=== PATIENT | female | born 1940 | race Caucasian/White ===

== ENCOUNTER 2017-11-04 17:09 | Emergency (ER) | payer MEDICARE ==
[~2017-11-04] VITALS: Ht 152.4 cm; Wt 53.6 kg
[2017-11-04 17:12] VITALS: TEMP 98.1
[2017-11-04] MEDS ORDERED: MEDROL 4MG DOSPA4 MG PO (18:22)
[2017-11-04] MEDS ORDERED: ULTRAM 50MG TAB50 MG PO (18:22)
[2017-11-04 18:40] VITALS: BP 136/78; PULSE 78
== END 2017-11-04 18:40 | disposition home or self-care (01) ==
LOC: COL.ER 17:09
DX: M54.16 Radiculopathy, lumbar region (principal)

== ENCOUNTER 2017-11-05 21:23 | Emergency (ER) | payer MEDICARE ==
[~2017-11-05] VITALS: Ht 152.4 cm; Wt 53.6 kg
[~2017-11-05 21:23] MED LIST: MEDROL 4MG DOSPA4 MG PO; ULTRAM 50MG TAB50 MG PO
[2017-11-05 21:28] VITALS: TEMP 97.6
[2017-11-05 22:02] LABS: GRAN % 88.6 % (42.2-75.2); HEMATOCRIT 40.5 % (37.0-47.0); HEMOGLOBIN 13.7 g/dl (12.5-16.0); LYMPH # 0.4 (1.2-3.4); LYMPH % 7.7 % (20.0-51.0); MEAN CELL VOLUME 89 fl (80.0-100.0); MEAN CORPUSCULAR HEMOGLOBIN 30 pg (27.0-31.0); MEAN CORPUSCULAR HGB CONC 34 g/dl (33.0-37.0); MEAN PLATELET VOLUME 10.4 fl (7.4-10.4); MONO # 0.2 (0.1-0.6); MONO % 3.5 % (1.7-9.3); PLATELET COUNT 155 K/mm3 (130-400); RED BLOOD COUNT 4.57 M/mm3 (4.10-5.30)
[2017-11-05 22:08] LABS: PROTHROMBIN TIME 11.5 SECONDS (9.7-12.8)
[2017-11-05 22:13] LABS: ALANINE AMINOTRANSFERASE 281 U/L (9-52); ALBUMIN 4.2 gm/dL (3.5-5.0); ALKALINE PHOSPHATASE 155 U/L (50-136); ANION GAP 12 mmol/L (7-16); AST,SGOT 533 U/L (15-37); BILIRUBIN,TOTAL 1.1 mg/dL (0.0-1.0); BLOOD UREA NITROGEN 14 mg/dL (7-17); CALCIUM 9.3 mg/dL (8.4-10.2); CARBON DIOXIDE 24 mmol/L (22-30); CHLORIDE 100 mmol/L (98-107); CREATININE, serum 0.76 mg/dL (0.52-1.25); GLUCOSE 203 mg/dL (74-106); POTASSIUM 4.4 mmol/L (3.4-5.0); SODIUM 136 mmol/L (137-145); TOTAL PROTEIN 8.1 gm/dL (6.4-8.2)
[2017-11-05 22:26] LABS: TROPONIN-I < 0.012 ng/mL (0.000-0.034)
[2017-11-05 22:39] LABS: COLLECTION METHOD CLEAN CATCH
[2017-11-05 22:46] LABS: MUCOUS Present /lpf; PH 5 (5-8); SQUAMOUS EPITHELIAL None Seen /hpf; URINE APPEARANCE Clear; URINE BACTERIA Occasional /hpf; URINE BILIRUBIN Negative (NEGATIVE); URINE BLOOD Negative (NEGATIVE); URINE COLOR Yellow; URINE GLUCOSE 2+ (NEGATIVE); URINE KETONE Negative (NEGATIVE); URINE LEUKOCYTE ESTERASE 1+ (NEGATIVE); URINE NITRATE Positive (NEGATIVE); URINE PROTEIN(semi-quant) 1+ (NEGATIVE); URINE RBC 0-2 /hpf
[2017-11-06] MEDS ORDERED: ZOFRAN ODT4 MG PO (00:14)
[2017-11-06] MEDS ORDERED: MACROBID 1100 MG/CAP PO (00:14)
[2017-11-06 00:29] VITALS: BP 129/72; PULSE 90
== END 2017-11-06 00:28 | disposition home or self-care (01) ==
LOC: COL.ER 21:23
PROVIDERS: Emergency Medicine
DX: K85.90 Acute pancreatitis without necrosis or infection, unspecified (principal); R94.5 Abnormal results of liver function studies; T38.0X5A Adverse effect of glucocorticoids and synthetic analogues, initial encounter; I10 Essential (primary) hypertension; Z90.49 Acquired absence of other specified parts of digestive tract; Z85.528 Personal history of other malignant neoplasm of kidney
CPT/HCPCS: J0696; J2405; J7120